=== PATIENT | female | born 1955 ===

== ENCOUNTER → 2020-12-03 | Outpatient (CLI) | payer BC ==
--- NOTE | 2020-12-03 08:42 | RAD ---
Complete abdominal ultrasound 12/03/2020 7:56 AM Clinical History: ABNORMAL LFTS / Technique: Ultrasound examination of the abdomen was performed, and multiple static images were subm itted for review. Comparison: None Findings: The pancreas is partially visualized. Visualized portions of the pancreas are unremarkable. Visualize d portions of aorta and IVC are unremarkable. Portions of liver obscured. The liver is normal in size measuring 15 cm longitudinally. The liver is mildly diffusely echogenic. Portal vein is patent with flow in the normal direction. The gallbladder demonstrates a [id number] sign consistent with ei ther large stone within the gallbladder lumen, or gallbladder full of small stones. Gallbladder wall is non-thickened. No pericholecystic fluid is seen. Right kidney is unremarkable in appearance measur ing 10.6 cm in length. Common bile duct is borderline in diameter at 6 mm. Spleen is top normal in si ze measuring 12 cm longitudinally. The left kidney is unremarkable in appearance measuring 10.7 cm in length. IMPRESSION: 1.Cholelithiasis, with rather large gallstone occupying the majority of the gallbladder lumen, or mul tiple focal small stones filling the lumen. No evidence of acute cholecystitis is seen. Top normal di ameter of the common bile duct. 2. Probable mild hepatic steatosis Electronically signed by: Bienvenido Maciel MD (12/03/2020 8:40 AM) [id number]
== END ==
LOC: US 07:45
PROVIDERS: ATTEND Specialist
DX: K80.20 Calculus of gallbladder without cholecystitis without obstruction (principal); R94.5 Abnormal results of liver function studies
CPT/HCPCS: 76700